=== PATIENT | male | born 1950 | race African-American/Black ===

== ENCOUNTER → 2019-01-31 | Outpatient (CLI) | payer BC | LOC: COL.RAD 12:16 | DX: M75.122 Complete rotator cuff tear or rupture of left shoulder, not specified as traumatic (principal); M75.102 Unspecified rotator cuff tear or rupture of left shoulder, not specified as traumatic; M89.9 Disorder of bone, unspecified ==

== ENCOUNTER 2023-05-28 11:40 | Inpatient (IN) | payer BC ==
[~2023-05-28] VITALS: Ht 172.7 cm; Wt 114.3 kg
[2023-05-28] VITALS (7 sets, daily range): BP systolic 124–143; BP diastolic 71–86; PULSE 80–89; TEMP 97.4–98.5
[~2023-05-28 11:40] MED LIST: NORCO 325 MG-51 TAB PO
[2023-05-28] MEDS ORDERED: DYAZIDE 25 MG-31 CAP PO (14:31)
[2023-05-28] MEDS ORDERED: BYSTOLIC20 MG PO (14:32)
[2023-05-28] MEDS ORDERED: MYRBETR50MG PO (14:33)
[2023-05-28] MEDS ORDERED: NEURONTIN100 MG/CAP PO (14:33)
[2023-05-28] MEDS ORDERED: FLOMAX 0.40.4 MG/CAP PO (14:34)
[2023-05-28] MEDS ORDERED: GLUCOTROL XL2.5 MG PO (14:34)
[2023-05-28] MEDS ORDERED: ASPIRIN 81M81 MG/TA2 PO (14:35)
[2023-05-28] MEDS ORDERED: MASON NATURAL2000 IU PO (14:35)
--- NOTE | 2023-05-28 16:12 | NUR ---
PT ARRIVED TO ROOM 308. PT IS A&OX4, COMPLAINT OF PAIN TO LLE. PT ABLE TO AMBULATE INDEPENDENTLY FROM WHEELCHAIR TO BED. PT STATED HE FIRST NOTED CELLULITIS TO THE LLE ON 05/21 WHILE ON VACATION AND WAS TAKING ORAL ANTIBIOTICS. LLE NOTED WITH ERYTHEMA AND BLISTERING UP TO L KNEE. BLISTER ON THE MEDIAL ASPECT OF LEG APPEARED TO HAVE OPENED WITH YELLOW DRAINAGE, WOUND SWAB TAKEN OF THE AREA. NON ADHERENT DRESSING AND KERLEX APPLIED TO THE AREA. HOSPITALIST IN TO SEE PT. THIS NURSE AND THE CHARGE NURSE ATTEMPTED IV INSERTION, UNSUCCESSFUL. [facility] CALLED AND CURRENTLY ATTEMPTING IV START. IV ANTIBIOTICS ORDERED.
[2023-05-28 16:54] LABS: HEMATOCRIT 40.2 % (42.0-52.0); MEAN CELL VOLUME 96 fl (80.0-100.0); MEAN CORPUSCULAR HEMOGLOBIN 31 pg (27-31); MEAN CORPUSCULAR HGB CONC 32 g/dl (33.0-37.0); MEAN PLATELET VOLUME 8.7 fl (7.4-10.4); PLATELET COUNT 322 K/mm3 (130-400); RED BLOOD COUNT 4.18 M/mm3 (4.20-5.60); REDCELL DISTRIBUTION WIDTH-CV 14.4 % (11.5-14.5)
[2023-05-28 17:00] LABS: ALBUMIN 2.9 gm/dL (3.4-4.8); BILIRUBIN,TOTAL 0.6 mg/dL (0.2-1.2); C-REACTIVE PROTEIN 10.66 mg/dL (0.00-0.50); CALCIUM 9.3 mg/dL (8.4-10.2); CREATININE, serum 1.04 mg/dL (0.72-1.25); POTASSIUM 3.4 mmol/L (3.5-4.5); TOTAL PROTEIN 7.5 gm/dL (6.2-8.1)
[2023-05-28 17:45] LABS: BAND 13 % (0-10); EOSINOPHIL 1 % (0-4); LYMPHOCYTE 24 % (20.0-51.0); METAMYELOCYTE 1 % (0-0); MYELOCYTE 2 % (0-0); NEUTROPHILS 54 % (42.0-75.2); PLATELET ESTIMATE NORMAL (NORMAL)
--- NOTE | 2023-05-28 19:01 | NUR ---
PT COMPLAINT OF HICCUPS X6DAYS NOW, REQUESTED ORDER FOR A PPI. CALL PLACED TO HOSPITALIST, NEW ORDER FOR PROTONIX 40MG DAILY AND ONE DOSE NOW.
--- NOTE | 2023-05-28 20:00 | NUR ---
UPON SHIFT ASSESSMENT, MR. BOWDEN WAS UP IN BED TALKING ON THE PHONE. HIS CURRENT VSS ARE WNL AND HE DENIES CHEST PAIN AND SOA. HIS LLE IS EDEMANOUS AND HAS A WEEPY BLISTER IN MEDIAL PORTION ON LOWER CALF. PEDAL PULSE WAS AUDIBLE WITH DOPPLER. WOUND WAS REWRAPPED WITH NON ADHERENT GAUZE AND KERLIX. PATIENT HAS 200ML OF DANIE URINE IN BEDSIDE URINAL. CALL LIGHT WITHIN REACH.
[2023-05-29] VITALS (12 sets, daily range): BP systolic 115–127; BP diastolic 64–76; PULSE 71–85; TEMP 97.6–98.3
--- NOTE | 2023-05-29 00:15 | NUR ---
PATIENT C/O 12/25 RIGHT LOWER EXTREMITY PAIN R/T CELLULITIS. ROXYCODONE PO ADMINISTERED.
--- NOTE | 2023-05-29 02:37 | NUR ---
PROTONIX HAS NOT RESOLVED PATIENT'S IRRETRACTABLE HICCUPS (6DAYS), HOWEVER, HE STATES THAT HICCUPS "AREN'T BAD" FOLLOWING ADMINISTERATION OF YUE FOR RLE PAIN.
--- NOTE | 2023-05-29 05:38 | NUR ---
THROUGHOUT THE NIGHT, MERCEDES CONTINUED TO EXPERIENCE IRRETRACTABLE HICCUPS. LOWER LEFT EXTREMITY REMAINS EDEMANOUS (REGION MARKED WITH SHARPIE) AND BLISTERS ARE WEEPY. DRESSING SHOWED PURLENT DRAINAGE AND WAS REDRESSED WITH NON ADHERENT GAUZE AND KERLIX. VSS ARE WNL AND MERCEDES REMAINED AFEBRILE. CALL LIGHT WITHIN REACH.
[2023-05-29 08:22] LABS: CALCIUM 8.6 mg/dL (8.4-10.2); CREATININE, serum 0.98 mg/dL (0.72-1.25); MAGNESIUM 1.7 mg/dL (1.6-2.6); POTASSIUM 3.2 mmol/L (3.5-4.5)
[2023-05-29 08:47] LABS: HEMOGLOBIN 11.3 g/dl (13.5-18.0); MEAN CELL VOLUME 97 fl (80.0-100.0); MEAN CORPUSCULAR HEMOGLOBIN 31 pg (27-31); MEAN CORPUSCULAR HGB CONC 31 g/dl (33.0-37.0); MEAN PLATELET VOLUME 8.6 fl (7.4-10.4); PLATELET COUNT 304 K/mm3 (130-400); RED BLOOD COUNT 3.71 M/mm3 (4.20-5.60); REDCELL DISTRIBUTION WIDTH-CV 14.3 % (11.5-14.5)
[2023-05-29 08:48] LABS: HEMATOCRIT 36.1 % (42.0-52.0)
--- NOTE | 2023-05-29 09:08 | NUR ---
call worker met with pt and a female at bedside to discuss discharge planning. He lives in [place]. He sees Dr. Fortune and obtains medications from [facility] with no difficulties. He has son, Ida [phone] listed as a contact. He has 3 children in total he reports. There is no DPOA-HC and he declines one at this time. SW informed him that his children would all decide on a decision if he was incapacited. Pt only uses a CPAP for DME and is independent with all ADLS. He intends to return home at discharge. Discharge Plan: Home
--- NOTE | 2023-05-29 09:20 | NUR ---
PT RESTING IN BED UPON ENTERING, LEFT LEG ELEVATED ON PILLOWS. ASSESSMENT DONE, MEDS GIVEN PER ORDER. PT REPORTS LEFT LOWER LEG PAIN RATING IT 2/10. REDNESS, SWELLING AND WARMTH NOTED TO LEFT LOWER EXTREMITY. LEFT LEG IS OUTLINED IN SHARPIE AND REDNESS SEEMS TO HAVE IMPROVED, PT AGREES. PT HAS SCATTERRED BLISTERS TO LEFT CALF, SOME DRAINING BUT NONE ARE INTACT. DOXYCYCLINE RUNNING AT 100MLS/HR DUE TO PT REPORTING A BURNING SENSATION WHEN IT RUNS AT 150 MLS/HR AND MAGNESIUM RUNNING AT 100 MLS/HR PER ORDER, BOTH IN RIGHT FOREARM IV. PT DENIES NEEDS AT THIS TIME. BED IN LOWEST POSITION, CALL LIGHT IN REACH
--- NOTE | 2023-05-29 10:30 | NUR ---
PT AMBULATED TO BATHROOM, STANDBY ASSIST WITH WALKER. PT NON WEIGHT BEARING AT THIS TIME. PT THEN AMBULATED TO CHAIR, LEGS ELEVATED AND DOXYCYCLINE RUNNING PER ORDER.
[2023-05-29] MEDS ORDERED: DOXYCYCLINE 10100 MG PO (10:51)
[2023-05-29] MEDS ORDERED: VIAGRA100 M1 PO (10:52)
[2023-05-29] MEDS ORDERED: DURICEF 500MG500 MG PO (10:52)
[2023-05-29] MEDS ORDERED: OZEMPIC2 MG/0.75 PO (10:53)
[2023-05-29 11:35] LABS: BAND 8 % (0-10); EOSINOPHIL 2 % (0-4); LYMPHOCYTE 22 % (20.0-51.0); METAMYELOCYTE 3 % (0-0); NEUTROPHILS 59 % (42.0-75.2); PLATELET ESTIMATE NORMAL (NORMAL)
--- NOTE | 2023-05-29 11:53 | NUR ---
PT TRANSFERRED FROM CHAIR TO BED, NON WEIGHTBEARING. DOXYCYCLINE AND MAGNESIUM COMPLETE. ZOSYN STARTED PER ORDER. LEFT LEG ELEVATED WITH PILLOWS. BLISTERS OOZING.
--- NOTE | 2023-05-29 12:27 | NUR ---
D: Initial visit: Sheriff Detective stopped by room on rounds. Pt was resting and content. A: Pt has no needs right now. P: Sheriff Detective informed pt that if he needed anything to let his nurse know. Sheriff Detective will follow up as needed.
--- NOTE | 2023-05-29 20:30 | NUR ---
Patient resting in bed. Rates his pain at a 5/10, pain meds given. Assessment complete. IV in right AC infusing with no complications. Call light and personal items in reach. Bed in low positon.
[2023-05-30] VITALS (12 sets, daily range): BP systolic 110–142; BP diastolic 66–84; PULSE 74–84; TEMP 97.4–98.7
--- NOTE | 2023-05-30 02:30 | NUR ---
Patients lower left leg is more tender and weeping more. Dressing applied with wet gauze, gauze wrap, and PENG wrap applied.
--- NOTE | 2023-05-30 05:55 | NUR ---
Patient resting in bed with eyes closed. Respirations even and unlabored. No sign so pain at this time. Call light and personal items in reach. Bed in low position.
[2023-05-30 06:32] LABS: HEMATOCRIT 37.9 % (42.0-52.0); MEAN CELL VOLUME 96 fl (80.0-100.0); MEAN CORPUSCULAR HEMOGLOBIN 31 pg (27-31); MEAN CORPUSCULAR HGB CONC 32 g/dl (33.0-37.0); MEAN PLATELET VOLUME 8.6 fl (7.4-10.4); PLATELET COUNT 329 K/mm3 (130-400); RED BLOOD COUNT 3.94 M/mm3 (4.20-5.60); REDCELL DISTRIBUTION WIDTH-CV 14.1 % (11.5-14.5)
[2023-05-30 06:43] LABS: CALCIUM 8.9 mg/dL (8.4-10.2); CREATININE, serum 1.01 mg/dL (0.72-1.25); POTASSIUM 3.7 mmol/L (3.5-4.5)
[2023-05-30 07:08] LABS: BAND 7 % (0-10); EOSINOPHIL 2 % (0-4); HYPOCHROMIA 2+; LYMPHOCYTE 22 % (20.0-51.0); NEUTROPHILS 63 % (42.0-75.2); PLATELET ESTIMATE NORMAL (NORMAL)
--- NOTE | 2023-05-30 08:35 | NUR ---
[employer] collaborated with Treatment Team to assess Patient for discharge readiness. Physician assesses Patient to need continued treatment, Patient will reamain INPT with soonest potential discharge tomorrow.
--- NOTE | 2023-05-30 11:19 | NUR ---
Patient is lying in bed, alert and oriented x 4, denies any pain or discomfort at this time. Assessment completed, meds provided, no further needs at this time. Call light within reach.
--- NOTE | 2023-05-30 19:45 | NUR ---
Patient resting in bed. Denies any pain at this time. Left lower leg dressing applied and wrapped with vasoline gauze, gauze wrap, and PENG wrap. Assessment complete. Call light and personal items in reach. Bed in low position.
[2023-05-31] VITALS (7 sets, daily range): BP systolic 110–123; BP diastolic 68–77; PULSE 68–90; TEMP 97.6–98.3
--- NOTE | 2023-05-31 05:57 | NUR ---
Patient resting in bed. Denies any pain at this time. Fresh water provided. Denies any other needs. Patient had an uneventful night. Call light and personal items in reach. Bed in low position.
[2023-05-31 06:46] LABS: HEMOGLOBIN 11.6 g/dl (13.5-18.0); MEAN CELL VOLUME 96 fl (80.0-100.0); MEAN CORPUSCULAR HEMOGLOBIN 31 pg (27-31); MEAN CORPUSCULAR HGB CONC 32 g/dl (33.0-37.0); MEAN PLATELET VOLUME 8.6 fl (7.4-10.4); PLATELET COUNT 318 K/mm3 (130-400); RED BLOOD COUNT 3.78 M/mm3 (4.20-5.60); REDCELL DISTRIBUTION WIDTH-CV 14.1 % (11.5-14.5)
[2023-05-31 06:50] LABS: HEMATOCRIT 36.3 % (42.0-52.0)
[2023-05-31 06:59] LABS: BAND 3 % (0-10); EOSINOPHIL 3 % (0-4); HYPOCHROMIA 1+; LYMPHOCYTE 16 % (20.0-51.0); NEUTROPHILS 74 % (42.0-75.2); PLATELET ESTIMATE NORMAL (NORMAL)
[2023-05-31 07:03] LABS: CALCIUM 8.6 mg/dL (8.4-10.2); CREATININE, serum 1.11 mg/dL (0.72-1.25); MAGNESIUM 1.9 mg/dL (1.6-2.6); POTASSIUM 3.4 mmol/L (3.5-4.5)
--- NOTE | 2023-05-31 11:08 | NUR ---
outreach worker was informed by PT Harry that pt needs a FWW. Order was signed and emailed to [facility]. Discharge Plan: Home with FWW
--- NOTE | 2023-05-31 11:15 | NUR ---
Patient alert and oriented x4. Shift assessment complete. Patient worked with PT/OT and complained of increased pain and burning to left lower leg affected by cellulitis. PRN Roxicodone administered. Left leg has decreased in swelling. Wrapped with gauze and PENG wrap. Patient resting in bed with call light in reach. Doxycycline running slower than ordered due to complaints of burning. No redness or infiltration noted. Currently running at 100ml/hr instead of 150. All needs met at this time.
[2023-05-31] MEDS ORDERED: CLEOCIN HCL300 MG PO (11:45)
[2023-05-31] MEDS ORDERED: CLEOCIN HC150 MG/CAP PO (11:46)
[2023-05-31] MEDS ORDERED: CEPHALEXIN500 M1 PO (11:46)
[2023-05-31] MEDS ORDERED: ROXICODONE 55 MG/TAB PO (11:47)
[2023-05-31] MEDS ORDERED: TYLENOL 500MG500 MG PO (11:48)
--- NOTE | 2023-05-31 12:03 | NUR ---
IV site at left forearm kept leaking during antibiotic infusion despite redressing site x1 and applying new J-loop. Patient received discharge orders, Dr. Ceballos notified and orders obtained for PO dose today. Left lower leg re-dressed with vasline gauze, gauze, and PENG wrap. Patient currently in bed with call light in reach, all needs met at this time.
--- NOTE | 2023-05-31 14:21 | NUR ---
Discharge instructions discussed with patient and daughter at bedside including follow-up appointments, medications, education packets, and wound care. Patient and daughter verbalized understanding. IV to LAC discontinued earlier this shift when site was leaking, telemetry off. Patient currently waiting for walker to take home, and to discuss home health with social work.
--- NOTE | 2023-05-31 14:44 | NUR ---
Patient states he is done waiting for walker to take home, and he will buy one at [facility]. Patient escorted out by daughter and staff via wheelchair to daughter's car. Social work aware.
--- NOTE | 2023-05-31 14:49 | NUR ---
alteration worker was informed that pt needs HH set up. SW met with pt and was provided with the medicare.gov list. Patient chose [facility] for HH services. Pt inquired if his FWW was on the way. SW informed she sent the the order at 11am, and unfortunately she did not know when they could come. Pt said he will just tile picker one from the store. SW faxed referral to [facility]. Discharge Plan: Home with [facility]
== END 2023-05-31 14:45 | disposition home health service (06) | DRG 603 ==
LOC: MEDICAL 11:40
PROVIDERS: Physician Assistant; ADMIT Internal Medicine
PROC: 5A09457 Assistance with Respiratory Ventilation, 24-96 Consecutive Hours, Continuous Positive Airway Pressure (ICD-10-PCS; principal; 2023-05-28)
DX: L03.116 Cellulitis of left lower limb (principal); I10 Essential (primary) hypertension; G47.33 Obstructive sleep apnea (adult) (pediatric); N40.0 Benign prostatic hyperplasia without lower urinary tract symptoms; E88.810 Metabolic syndrome; E87.6 Hypokalemia; E83.42 Hypomagnesemia; R06.6 Hiccough; R73.03 Prediabetes; Z90.49 Acquired absence of other specified parts of digestive tract; Z87.442 Personal history of urinary calculi; Z88.8 Allergy status to other drugs, medicaments and biological substances; Z79.82 Long term (current) use of aspirin; Z79.899 Other long term (current) drug therapy; Z23 Encounter for immunization
CPT/HCPCS: J1644; J2543; J3370; J3475; J7050; Q3014